=== PATIENT | female | born 1970 | race Caucasian/White ===

== ENCOUNTER → 2016-07-09 | Outpatient (CLI) | payer MEDICARE, MEDICAID | LOC: GMAM 14:19 | PROVIDERS: ATTEND Family Medicine | DX: R11.0 Nausea (principal) ==

== ENCOUNTER → 2016-07-29 | Outpatient (CLI) | payer MEDICARE, MEDICAID | END | disposition home or self-care (01) | LOC: LAB.O 11:08 | PROVIDERS: ATTEND Psychiatry & Neurology Neurology | DX: Z79.899 Other long term (current) drug therapy (principal); R41.3 Other amnesia ==

== ENCOUNTER → 2016-10-20 | Outpatient (CLI) | payer MEDICARE, MEDICAID ==
--- NOTE | 2016-10-20 17:11 | US ---
History: Hepatic lesion. Right upper quadrant ultrasound is performed and compared with ultrasound from 02/2016 and 07/2015. A stable appearing 15 x 7 x 11 mm peripheral hypoechoic nodule is demonstrated in the right liver dome without additional liver abnormality demonstrated. The common duct grossly stable to prior studies, likely measuring 6 to 7 mm. The measurement on this exam likely is of the hepatic artery. The overall appearance appears stable. The gallbladder is not shown and surgical absence questioned. No significant right upper quadrant fluid. Visualized pancreas, aorta and IVC are normal. The right kidney appears unremarkable although its length is not documented. IMPRESSION: Stable appearing suspected benign subcapsular nodule right liver lobe since 2015. Electronically signed by: Lupe Corey MD 10/20/2016 5:11 PM CDT
== END ==
LOC: US 09:02
PROVIDERS: ATTEND Family Medicine
DX: D37.6 Neoplasm of uncertain behavior of liver, gallbladder and bile ducts (principal)

== ENCOUNTER → 2016-11-01 | Outpatient (CLI) | payer MEDICARE, MEDICAID | END | disposition home or self-care (01) | LOC: YCFC.O 08:56 | PROVIDERS: ATTEND Anesthesiology Pain Medicine | DX: Z79.891 Long term (current) use of opiate analgesic (principal) ==

== ENCOUNTER → 2016-11-30 | Outpatient (CLI) | payer MEDICARE, MEDICAID | END | disposition home or self-care (01) | LOC: LAB.O 14:29 | PROVIDERS: ATTEND Family Medicine | DX: F31.76 Bipolar disorder, in full remission, most recent episode depressed (principal) ==

== ENCOUNTER → 2017-02-02 | Outpatient (CLI) | payer MEDICARE, MEDICAID | END | disposition home or self-care (01) | LOC: GMAM 11:41 | PROVIDERS: ATTEND Family Medicine | DX: M25.579 Pain in unspecified ankle and joints of unspecified foot (principal) ==

== ENCOUNTER → 2017-02-02 | Outpatient (CLI) | payer MEDICARE, MEDICAID ==
--- NOTE | 2017-02-03 00:47 | US ---
PROCEDURE: Venous,Lower Extremity RT CLINICAL HISTORY and INDICATION: Right lower extremity pain COMPARISON: None. TECHNIQUE: Mayo scale imaging with duplex interrogation of the right lower extremity venous system was performed and multiple static images were obtained. FINDINGS: Utilizing compression and augmentation, there is no deep venous thrombus in the common femoral, superficial femoral or popliteal veins. The posterior tibial and deep peroneal veins are patent and compressible. . The greater saphenous vein at the saphenofemoral junction is patent and compressible. There is no visualization of any subcutaneous fluid collections. There is no visualization of any fluid collections in the right popliteal fossa. There is no evidence of reactive or pathological lymphadenopathy in the evaluated right lower extremity. IMPRESSION: No deep venous thrombosis of the right lower extremity. Location of Interpretation: [id number] Electronically signed by: Ryan Salinas MD 02/03/2017 12:46 AM CDT Workstation: [id number]
--- NOTE | 2017-02-03 10:25 | RAD ---
EXAM DESCRIPTION: Ankle,Right 3 Views CLINICAL HISTORY: 46 years, Female, ANKLE PAIN COMPARISON: None. TECHNIQUE: AP/lateral/oblique of the ankle FINDINGS: Three views of the left ankle demonstrate internal fixation of the medial malleolus with two screws and the distal fibula and lateral malleolus with sideplate and multiple screws. Significant soft tissue swelling laterally is present. Ankle mortise is well-maintained. No acute fracture or dislocation or widening of the mortise or recurrent fracture is seen. IMPRESSION: 1. Significant soft tissue swelling laterally with previous internal fixation of the lateral malleolus and medial malleolus. No acute fracture noted. Electronically signed by: Bhanu Adler MD 02/03/2017 10:24 AM CDT
--- NOTE | 2017-02-03 10:27 | RAD ---
EXAM DESCRIPTION: Foot,Right 3 Views CLINICAL HISTORY: 46 years, Female, FOOT PAIN COMPARISON: None TECHNIQUE: AP, lateral, and oblique views of the right foot FINDINGS: The right foot appears mildly osteopenic and previous internal fixation of the ankle mortise noted. A large os navicularis is evident at the medial aspect of the hindfoot. No fracture or dislocation is seen. IMPRESSION: Mild osteopenia and minimal degenerative changes without acute injury. Electronically signed by: Bhanu Adler MD 02/03/2017 10:26 AM CDT
--- NOTE | 2017-02-03 10:29 | RAD ---
EXAM DESCRIPTION: Tibia/Fibula,Right CLINICAL HISTORY: 46 years Female, ANKLE PAIN COMPARISON: None. FINDINGS: Two views of the right leg demonstrate previous internal fixation of the ankle mortise medially and laterally. The right tibia and fibula are intact. No foreign body is noted. Soft tissue swelling laterally at the ankle is noted. IMPRESSION: No acute injury evident. Electronically signed by: Bhanu Adler MD 02/03/2017 10:27 AM CDT
== END | disposition home or self-care (01) ==
LOC: RAD 11:17
PROVIDERS: ATTEND Nurse Practitioner Family
DX: M25.579 Pain in unspecified ankle and joints of unspecified foot (principal); M85.871 Other specified disorders of bone density and structure, right ankle and foot; R60.0 Localized edema

== ENCOUNTER 2017-02-14 06:02 | Day surgery (SDC) | payer MEDICARE, MEDICAID ==
[2017-02-14] MEDS ORDERED: methylPREDNISolone ACETATE 80 MG/ML VIAL ONE (11:29)
[2017-02-14] MEDS ORDERED: SODIUM CHLORIDE 0.9% 10 ML VIAL ONE (11:29)
[2017-02-14] MEDS ORDERED: LIDOCAINE 1% MPF 5 ML VIAL ONE (11:29)
[2017-02-14 13:45] VITALS: BP 115/81; TEMP 97.7; O2SAT 98
== END 2017-02-14 13:45 | disposition home or self-care (01) ==
LOC: AMB 06:02 → EDSTATUS 14:00
PROVIDERS: ATTEND Anesthesiology Pain Medicine
DX: M51.16 Intervertebral disc disorders with radiculopathy, lumbar region (principal); K21.9 Gastro-esophageal reflux disease without esophagitis; F32.9 Major depressive disorder, single episode, unspecified; F17.210 Nicotine dependence, cigarettes, uncomplicated; M47.27 Other spondylosis with radiculopathy, lumbosacral region; Z88.2 Allergy status to sulfonamides; Z79.899 Other long term (current) drug therapy
CPT/HCPCS: 62323; J1030

== ENCOUNTER → 2017-02-22 | Outpatient (CLI) | payer MEDICARE, MEDICAID | LOC: YCFC.O 14:07 | PROVIDERS: ATTEND Anesthesiology Pain Medicine | DX: Z79.891 Long term (current) use of opiate analgesic (principal) ==

== ENCOUNTER 2017-03-21 05:51 | Day surgery (SDC) | payer MEDICARE, MEDICAID ==
[2017-03-21] MEDS ORDERED: LIDOCAINE 1% MPF 5 ML VIAL ONE (09:25)
[2017-03-21] MEDS ORDERED: SODIUM BICARBONATE VIAL 50 MEQ/50 ML VIAL ONE (09:25)
[2017-03-21] MEDS ORDERED: methylPREDNISolone ACETATE 80 MG/ML VIAL ONE (09:25)
[2017-03-21] MEDS ORDERED: SODIUM CHLORIDE 0.9% 10 ML VIAL ONE (09:25)
[2017-03-21] MEDS ORDERED: BUPIVACAINE 0.25% INJ 30 ML VIAL INJ ONE ×2 (12:23→12:42)
[2017-03-21 13:18] VITALS: BP 118/84; TEMP 96.7; O2SAT 99
== END 2017-03-21 13:15 | disposition home or self-care (01) ==
LOC: AMB 05:51
PROVIDERS: ATTEND Anesthesiology Pain Medicine
DX: M47.812 Spondylosis without myelopathy or radiculopathy, cervical region (principal)
CPT/HCPCS: 64490; 64491; 76000; J1030

== ENCOUNTER → 2017-04-26 | Outpatient (CLI) | payer MEDICARE, MEDICAID | LOC: GMAM 15:25 | PROVIDERS: ATTEND Family Medicine | DX: G40.301 Generalized idiopathic epilepsy and epileptic syndromes, not intractable, with status epilepticus (principal); R30.0 Dysuria; Z79.899 Other long term (current) drug therapy ==

== ENCOUNTER → 2017-04-29 | Outpatient (CLI) | payer MEDICARE, MEDICAID ==
--- NOTE | 2017-04-30 01:22 | US ---
EXAM DESCRIPTION: Liver CLINICAL HISTORY: LIVER nodule COMPARISON: 10/20/2016 and 03/03/2016 TECHNIQUE: Real-time sonographic images of the right upper abdomen were obtained using a curved multihertz transducer. FINDINGS: The visualized portions of the pancreas are unremarkable. The visualized portions of the aorta and IVC are unremarkable. The liver has normal contour and echogenicity. 2.0 x 1.5 x 1.5 cm hypoechoic likely benign structure in the right hepatic lobe is not significantly changed. On bile duct measures 0.3 cm. Prior cholecystectomy. Visualized portions of the right kidney are unremarkable.. IMPRESSION: 1. Stable appearing likely benign subcapsular right hepatic nodule. Electronically signed by: Dario Giordano 04/30/2017 1:21 AM CDT
--- NOTE | 2017-05-01 14:51 | CT ---
EXAM DESCRIPTION: Chest w/Contrast (accession [id number]), Chest w/o Contrast (accession [id number]) CLINICAL HISTORY: COPD. J44.9. SOLITARY PULMONARY NODULE. R91.1 COMPARISON: March 03, 2016 TECHNIQUE: Chest CT was performed with and without IV contrast. This exam was performed according to our departmental dose-optimization program, which includes automated exposure control, adjustment of the mA and/or kV according to patient size and/or use of iterative reconstruction technique. FINDINGS: Again seen are a few slightly enlarged mediastinal lymph nodes measuring up to 12 or 13 mm short axis diameter, stable. A right hilar lymph node is at the upper limits of normal size, measuring 8 or 9 mm short axis diameter, also stable. No pleural or pericardial effusion. No thoracic aortic aneurysm. The main pulmonary artery is not dilated. The central airways are clear. Emphysematous changes are noted. There is a 4 mm noncalcified nodule in the right upper lobe (series 7 image 24), not significantly changed from February,. There is an additional 4 mm pleural-based nodule posteriorly in the right upper lobe (series 7 image 27), also stable. This nodule may be partially calcified. No new lung nodule is identified. The gallbladder is surgically absent. There is a small cyst in the right hepatic lobe. Visualized portions of the upper abdomen are otherwise unremarkable. IMPRESSION: Emphysema with 2 small nodules in the right upper lobe, stable from February, and also unchanged from an older exam performed in January,. No further follow-up is recommended. Several slightly enlarged mediastinal lymph nodes, also unchanged from January,. Electronically signed by: Dominic Robin MD 05/01/2017 2:[address] [facility]
--- NOTE | 2017-05-01 14:51 | CT ---
EXAM DESCRIPTION: Chest w/Contrast (accession [id number]), Chest w/o Contrast (accession [id number]) CLINICAL HISTORY: COPD. J44.9. SOLITARY PULMONARY NODULE. R91.1 COMPARISON: March 03, 2016 TECHNIQUE: Chest CT was performed with and without IV contrast. This exam was performed according to our departmental dose-optimization program, which includes automated exposure control, adjustment of the mA and/or kV according to patient size and/or use of iterative reconstruction technique. FINDINGS: Again seen are a few slightly enlarged mediastinal lymph nodes measuring up to 12 or 13 mm short axis diameter, stable. A right hilar lymph node is at the upper limits of normal size, measuring 8 or 9 mm short axis diameter, also stable. No pleural or pericardial effusion. No thoracic aortic aneurysm. The main pulmonary artery is not dilated. The central airways are clear. Emphysematous changes are noted. There is a 4 mm noncalcified nodule in the right upper lobe (series 7 image 24), not significantly changed from February,. There is an additional 4 mm pleural-based nodule posteriorly in the right upper lobe (series 7 image 27), also stable. This nodule may be partially calcified. No new lung nodule is identified. The gallbladder is surgically absent. There is a small cyst in the right hepatic lobe. Visualized portions of the upper abdomen are otherwise unremarkable. IMPRESSION: Emphysema with 2 small nodules in the right upper lobe, stable from February, and also unchanged from an older exam performed in January,. No further follow-up is recommended. Several slightly enlarged mediastinal lymph nodes, also unchanged from January,. Electronically signed by: Dominic Robin MD 05/01/2017 2:50 PM [facility]
== END | disposition home or self-care (01) ==
LOC: CT 11:22
PROVIDERS: ATTEND Family Medicine
DX: R91.1 Solitary pulmonary nodule (principal); D37.6 Neoplasm of uncertain behavior of liver, gallbladder and bile ducts

== ENCOUNTER → 2017-05-02 | Outpatient (CLI) | payer MEDICARE, MEDICAID | END | disposition home or self-care (01) | LOC: GMAM 16:53 | PROVIDERS: ATTEND Family Medicine | DX: D72.829 Elevated white blood cell count, unspecified (principal) ==

== ENCOUNTER → 2017-05-17 | Outpatient (CLI) | payer MEDICARE, MEDICAID | END | disposition home or self-care (01) | LOC: YCFC.O 13:34 | PROVIDERS: ATTEND Anesthesiology Pain Medicine | DX: Z79.891 Long term (current) use of opiate analgesic (principal) ==

== ENCOUNTER → 2017-08-24 | Outpatient (CLI) | payer OTHER, MEDICAID | LOC: GMAM 11:30 | PROVIDERS: ATTEND Family Medicine | DX: D72.829 Elevated white blood cell count, unspecified (principal); Z79.899 Other long term (current) drug therapy ==